=== PATIENT | male | born 1965 | race Caucasian/White ===

== ENCOUNTER → 2018-03-24 | Outpatient (CLI) | payer BC ==
[2018-03-24 12:12] LABS: ABSOLUTE RETIC # 70 10e9/L (24-90); BASOPHILS % (AUTO) 0 % (0-10); EOSINOPHILS # (AUTO) 0.1 10^3/uL (0.0-0.3); EOSINOPHILS % (AUTO) 3 % (0-10); HEMATOCRIT 39 % (40-54); HEMOGLOBIN 12.9 G/DL (13.3-17.7); LYMPHOCYTES # (AUTO) 0.9 X 10^3 (1.0-4.0); LYMPHOCYTES % (AUTO) 23 % (12-44); MEAN CORPUSCULAR HEMOGLOBIN 26 PG (25-34); MEAN CORPUSCULAR HGB CONC 33 G/DL (32-36); MEAN CORPUSCULAR VOLUME 79 FL (80-99); MEAN PLATELET VOLUME 10.6 FL (7.4-10.4); MONOCYTES # (AUTO) 0.3 X 10^3 (0.0-1.0); MONOCYTES % (AUTO) 7 % (0-12); NEUTROPHILS # (AUTO) 2.8 X 10^3 (1.8-7.8); NEUTROPHILS % (AUTO) 67 % (42-75); PLATELET COUNT 141 10^3/uL (130-400); RED BLOOD COUNT 4.89 10^6/uL (4.35-5.85); RED CELL DISTRIBUTION WIDTH 15.4 % (10.0-14.5); RETICULOCYTE % 1.44 % (0.50-2.40); WHITE BLOOD COUNT 4.1 10^3/uL (4.3-11.0)
[2018-03-24 12:36] LABS: BASOPHILS % (MANUAL) 3 %; EOSINOPHILS % (MANUAL) 1 %; LYMPHOCYTES % (MANUAL) 20 %; MONOCYTES % (MANUAL) 4 %; NEUTROPHILS % (MANUAL) 72 %
== END ==
LOC: LAB 11:37
PROVIDERS: ATTEND Nurse Practitioner Family
DX: R53.82 Chronic fatigue, unspecified (principal); D64.9 Anemia, unspecified
CPT/HCPCS: 36415; 82728; 85007; 85027; 85045

== ENCOUNTER 2019-01-27 05:31 | Outpatient (CLI) | payer BC ==
[~2019-01-27] VITALS: Ht 177.8 cm; Wt 95.3 kg
[2019-01-27] MEDS ORDERED: CHOL200014 PO (13:06)
[2019-01-27] MEDS ORDERED: FERR-84 PO (13:06)
[2019-01-27] MEDS ORDERED: PANT40TA3 PO (13:06)
== END 2019-01-27 13:02 | disposition home or self-care (01) ==
LOC: PREOP 05:31
PROVIDERS: ATTEND Specialist
DX: Z01.818 Encounter for other preprocedural examination (principal)

== ENCOUNTER 2019-01-29 06:50 | Day surgery (SDC) | payer BC ==
[~2019-01-29] VITALS: Ht 177.8 cm; Wt 95.3 kg
[~2019-01-29 06:50] MED LIST: CHOL200014 PO; FERR-84 PO; PANT40TA3 PO
[2019-01-29 07:01] VITALS: BP 137/99
[2019-01-29] MEDS: PHENYLEPHRINE 10% OPHTH (NEO-SYN) 5 ML BTL OU PRN ×3 (07:03→07:14)
[2019-01-29] MEDS: TETRACAINE 0.5% OPHTH SOLN 4 ML BTL (SINGLE DOSE ONLY) OU PRN ×3 (07:03→07:14)
[2019-01-29] MEDS: TROPICAMIDE 1% OPH SOLN (MYDRIACYL) 15 ML BTL OU PRN ×3 (07:03→07:14)
--- NOTE | 2019-01-29 07:43 | Ophthalmologist Pre-Op Note ---
Pre-Operative Progress Note H&P Reviewed The H&P was reviewed, patient examined and no changes noted. Date H&P Reviewed: January 29, 2019 Time H&P Reviewed: 07:43 Pre-Op Dx Secondary Cataract, Right Eye TAMMY BRINK MD January 29, 2019 07:43
[2019-01-29 07:50] VITALS: BP 137/99
--- NOTE | 2019-01-29 07:52 | Ophthalmology Operative Report ---
YAG Capsulotomy PREOPERATIVE DIAGNOSIS: Secondary Cataract Right Eye POSTOPERATIVE DIAGNOSIS: Secondary Cataract Right Eye PROCEDURE: YAG Capsulotomy, right eye SURGEON: Nixon Brink ANESTHESIA: Topical anesthesia COMPLICATIONS: None ESTIMATED BLOOD LOSS: Minimal DESCRIPTION OF PROCEDURE: After proper informed consent was obtained, the patient's, a 53 male, right eye received one drop of Tropicamide and one drop of Tetracaine. The patient was then placed at the YAG laser and using a power of [ 3.2 ] millijoules and [27 ] bursts were used to fashion a central capsulotomy. The patient tolerated the procedure well without complications and the patient's pressure was [16 ] shortly after the laser. NIXON BRINK MD January 29, 2019 07:52
== END 2019-01-29 07:50 | disposition home or self-care (01) ==
LOC: SDC 06:50
PROVIDERS: ATTEND Specialist
DX: H26.491 Other secondary cataract, right eye (principal)